=== PATIENT | female | born 1955 | race African-American/Black ===

== ENCOUNTER → 2019-05-17 | Outpatient (CLI) | payer MEDICARE | LOC: MAMMO 09:35 | PROVIDERS: ATTEND Internal Medicine | DX: Z12.31 Encounter for screening mammogram for malignant neoplasm of breast (principal); M85.80 Other specified disorders of bone density and structure, unspecified site | CPT/HCPCS: 77067; 77080 ==

== ENCOUNTER → 2019-06-16 | Outpatient (CLI) | payer MEDICARE ==
--- NOTE | 2019-06-19 09:01 | Diagnostic Imaging Report ---
#[id number] - MGDXLT #UNILATERAL LEFT DIGITAL DIAGNOSTIC MAMMOGRAM WITH SPOT COMPRESSION: 06/16/2019 Comparison is made to exam dated: 05/17/2019 mammogram - [facility]. Current study contains 2 films. The tissue of the left breast is predominantly fatty. There is a benign 8 mm oval cyst with a circumscribed margin in the left breast at 3 o'clock middle depth. This correlates with ultrasound findings. No other significant masses or calcifications are seen in the breast. IMPRESSION: BENIGN See the report for ultrasound performed the same day for additional details. There is no mammographic evidence of malignancy. A 1 year screening mammogram is recommended. The patient will be notified by letter of the results. GILMA peoples/penrad:06/16/2019 12:10:21 Prototype Engineer Manager: Cande SOSA)(Familia), [facility] letter sent: Normal Exam Mammogram BI-RADS: 2 Benign
--- NOTE | 2019-06-19 09:02 | Diagnostic Imaging Report ---
#[id number] - USBRELIMLT ULTRASOUND OF THE LEFT BREAST : 06/16/2019 Comparison is made to exams dated: 06/16/2019 mammogram and 05/17/2019 mammogram - [facility]. Real-time ultrasound was performed on the left breast. There is a benign 7 mm oval cyst with a smooth internal wall in the left breast at 3 o'clock posterior depth. This oval cyst is anechoic. This correlates with mammography findings. No masses or other significant findings are present. IMPRESSION: BENIGN There is no sonographic evidence of malignancy. The 7 mm oval cyst in the left breast is benign. A 1 year screening mammogram is recommended. GILMA DANIEL M.D. ct/:06/16/2019 12:12:12 Mineral Economist: Jessica Clinton [facility], [facility] letter sent: Normal Exam Ultrasound BI-RADS: 2 Benign
== END ==
LOC: MAMMO 08:15
PROVIDERS: ATTEND Internal Medicine
DX: R92.8 Other abnormal and inconclusive findings on diagnostic imaging of breast (principal)